=== PATIENT | female | born 1980 | race Caucasian/White ===

== ENCOUNTER 2024-05-14 14:29 | Outpatient (CLI) | payer OTHER | END 2024-05-14 14:30 | disposition home or self-care (01) | LOC: ULT 14:29 | PROVIDERS: ATTEND Nurse Practitioner Family | DX: M79.605 Pain in left leg (principal) | CPT/HCPCS: 93923 ==

== ENCOUNTER 2024-05-23 07:21 | Outpatient (CLI) | payer OTHER | END 2024-05-23 07:22 | disposition home or self-care (01) | LOC: SCSMRI 07:21 | PROVIDERS: ATTEND Nurse Practitioner Family | DX: M79.605 Pain in left leg (principal) ==

== ENCOUNTER 2024-07-23 07:52 | Outpatient (CLI) | payer OTHER | END 2024-07-23 07:53 | disposition home or self-care (01) | LOC: ULT 07:52 | PROVIDERS: ATTEND Nurse Practitioner Family | DX: R13.10 Dysphagia, unspecified (principal); E04.1 Nontoxic single thyroid nodule; R93.89 Abnormal findings on diagnostic imaging of other specified body structures | CPT/HCPCS: 76536 ==